=== PATIENT | male | born 1990 | race Caucasian/White ===

== ENCOUNTER 2020-08-18 12:44 | Emergency (ER) | payer SELFPAY ==
[~2020-08-18] VITALS: Ht 162.6 cm; Wt 68.0 kg
[2020-08-18 12:59] VITALS: BP 140/92
--- NOTE | 2020-08-18 13:04 | NUR ---
30/M BIB SELF C/O WOUND TO RIGHT HAND PAIN 05/07 & SWELLING S/P BUG BITE X 2 DAYS. PMH: DENIES
[2020-08-18] MEDS ORDERED: KETOROLAC 30 MG/ML VIAL IM ONE (13:15)
--- NOTE | 2020-08-18 13:59 | NUR ---
PT BROUGHT TO CHAIR A
[2020-08-18] MEDS ORDERED: cefTRIAXone 1,000 MG in LIDOCAINE MPF 1% 2.1 ML IM ONE (14:00)
[2020-08-18] MEDS ORDERED: cefTRIAXone 1,000 MG VIAL ONE (14:17)
[2020-08-18] MEDS ORDERED: diphenhydrAMINE 50 MG CAP PO ONE (14:20)
[2020-08-18 14:32] VITALS: BP 140/92
--- NOTE | 2020-08-18 14:32 | NUR ---
Patient discharged with v/s stable. Written and verbal after care instructions given and explained. Patient alert, oriented and verbalized understanding of instructions. Ambulatory with steady gait. All questions addressed prior to discharge. ID band removed. Patient advised to follow up with PMD. Rx of KEFLEX, BENADRYL, IBUPROFEN, BACTRIM given. Patient educated on indication of medication including possible reaction and side effects. Opportunity to ask questions provided and answered.
== END 2020-08-18 14:32 | disposition home or self-care (01) ==
LOC: MED 12:44
DX: L03.113 Cellulitis of right upper limb (principal); L25.9 Unspecified contact dermatitis, unspecified cause
CPT/HCPCS: 73130; 90471; 90715; 96365; 96372; 99284; J0696; J1885; Q0163

== ENCOUNTER 2020-08-22 17:20 | Inpatient (IN) | payer MEDICAID, SELFPAY ==
[~2020-08-22] VITALS: Ht 162.6 cm; Wt 68.0 kg
[2020-08-22] MEDS ORDERED: VANCOMYCIN 1,000 MG in DEXTROSE 5% 250 ML IV ONE (17:35)
[2020-08-22] MEDS ORDERED: NACL 0.9% 1,000 ML IV ONE (17:35)
[2020-08-22 17:54] VITALS: BP 120/70
--- NOTE | 2020-08-22 17:57 | NUR ---
C/O R HAND PAIN 8/10, REDNESS SWELLING X 1 WEEK. PMH: DENIES
[2020-08-22 18:29] LABS: BASOPHILS # (AUTO) 0.2 K/uL (0.00-0.22); BASOPHILS % (AUTO) 2.2 % (0.0-2.0); EOSINOPHILS # (AUTO) 0.3 K/uL (0-0.4); HEMATOCRIT 36.8 % (36-52); HEMOGLOBIN 12.5 g/dL (12.0-18.0); LYMPHOCYTES # (AUTO) 2.2 K/uL (2.0-11.5); LYMPHOCYTES % (AUTO) 30.2 % (20.5-51.1); MEAN CORPUSCULAR HEMOGLOBIN 31 pg (27-31); MEAN CORPUSCULAR HGB CONC 34 g/dL (33-37); MEAN CORPUSCULAR VOLUME 92.1 fL (80-94); MONOCYTES # (AUTO) 0.6 K/uL (0.8-1.0); NEUTROPHILS # (AUTO) 3.9 K/uL (1.8-7.7); NEUTROPHILS % (AUTO) 54.6 % (42.2-75.2); PLATELET COUNT (AUTO) 400 K/uL (140-450); RED BLOOD CELL COUNT(AUTO) 3.99 MIL/uL (4.20-6.10); RED CELL DISTRIBUTION WIDTH 13.7 % (11.6-13.7); WHITE BLOOD COUNT (AUTO) 7.2 K/uL (4.8-10.8)
[2020-08-22 18:54] LABS: CARBON DIOXIDE 31.6 mmol/L (21-32); CREATININE 0.9 mg/dL (0.6-1.3); POTASSIUM 3.6 mmol/L (3.5-5.1); TOTAL BILIRUBIN 0.1 mg/dL (0.0-1.0)
[2020-08-22 18:56] LABS: PROTHROMBIN TIME 9.5 secs (10.8-13.4)
[2020-08-22] MEDS ORDERED: KETOROLAC 15 MG/ML VIAL IVP ONE (19:35)
[2020-08-22] MEDS ORDERED: VANCOMYCIN 1,000 MG VIAL ONE (19:37)
--- NOTE | 2020-08-22 20:00 | NUR ---
RAJI MICHAEL SWAB COLLECTED AND HANDED TO LAB.
--- NOTE | 2020-08-22 20:19 | NUR ---
LAB CALLED WITH [facility]ICAL [facility] VALUE LACTIC 2.2. ERMD MADE AWARE
[2020-08-22] MEDS ORDERED: KETOROLAC 15 MG/ML VIAL ONE (20:55)
--- NOTE | 2020-08-22 21:20 | NUR ---
pt states he wants to leave against medical advice. Pt educated on his medical condition and the need for him to stay in hopsital at this time.
--- NOTE | 2020-08-22 21:25 | NUR ---
IV removed, catheter intact and site benign. Applied folded 4x4 gauze and tape to stop bleeding.
[2020-08-22 21:30] VITALS: BP 120/70
--- NOTE | 2020-08-22 21:30 | NUR ---
Dr. Ruiz informed that pt has left AMA.
--- NOTE | 2020-08-22 21:30 | NUR ---
Patient does not wish to proceed with medical care recommended by Dr. Ruiz. Patient given information related to possible complications, up to and including , which could occur as a result of leaving hospital at this time. Patient verbalizes understanding of risks involved leaving against medical advice. Patient has signed AMA form.
[2020-08-23 16:29] LABS: APPEARANCE,URINE CLEAR (CLEAR); BILIRUBIN,URINE NEGATIVE (NEGATIVE); BLOOD, URINE 2+ (NEGATIVE); COLOR,URINE YELLOW (YELLOW); LEUKOCYTE ESTERASE ,URINE NEGATIVE (NEGATIVE); NITRITE, URINE NEGATIVE (NEGATIVE); PH,URINE 6.5 (5.0-9.0); UGLUCOSE NEGATIVE (NEGATIVE)
[2020-08-23 17:02] LABS: CALCIUM OXALATE CRYSTALS,UR 0-10 /HPF (None Seen); RBC,URINE 0-5 /HPF (0-5); WBC,URINE NONE SEEN /HPF (0-5)
== END 2020-08-22 21:30 | disposition left against medical advice (07) | DRG 383 ==
LOC: MED 17:20 → MTU 20:06
PROVIDERS: ADMIT Emergency Medicine; ATTEND Emergency Medicine
DX: L03.113 Cellulitis of right upper limb (principal); Z20.828 Contact with and (suspected) exposure to other viral communicable diseases; Z79.899 Other long term (current) drug therapy
CPT/HCPCS: 36415; 80053; 81001; 83605; 85025; 85610; 85730; 87040; 87086; 96365; 96375; 99285; J1885; J3370